=== PATIENT | male | born 1965 | race Two or more races ===

== ENCOUNTER 2017-11-10 14:10 | Emergency (ER) | payer SELFPAY ==
[2017-11-10 14:21] VITALS: TEMP 98; BMI 32.3
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
[2017-11-10] MEDS ORDERED: IBUPROFEN 400 MG TABLET (FP) PO ONE ×2 (14:33→14:40)
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
[2017-11-10 17:40] VITALS: BP 168/72; PULSE 82
== END 2017-11-10 17:45 | disposition home or self-care (01) ==
LOC: JER 14:10
DX: S09.90XA Unspecified injury of head, initial encounter (principal); W22.8XXA Striking against or struck by other objects, initial encounter; Y93.89 Activity, other specified; Y92.9 Unspecified place or not applicable; Y99.0 Civilian activity done for income or pay
CPT/HCPCS: 73110-TC-LR-FY; 73130-TC-LR-FY; 99285-25